=== PATIENT | male | born 1990 | race Hispanic/Latino ===

== ENCOUNTER 2019-08-02 05:58 | Day surgery (SDC) | payer BC ==
[2019-08-02] MEDS ORDERED: raNITIdine HCL INJ 25 MG/ML VIAL ONE (07:00)
[2019-08-02] MEDS ORDERED: PROPOFOL 200 MG/20 ML VIAL IV ONE (07:00)
[2019-08-02] MEDS ORDERED: DEXAMETHASONE INJ 10 MG/ML VIAL ONE (07:00)
[2019-08-02] MEDS ORDERED: LIDOCAINE 1% 10 ML VIAL INJ ONE (07:00)
[2019-08-02] MEDS ORDERED: SODIUM CHLORIDE 0.9% 50 ML VIAL ONE (07:00)
[2019-08-02] MEDS ORDERED: MAGNESIUM SULFATE INJ 1 GM/2 ML VIAL ONE (07:00)
[2019-08-02] MEDS ORDERED: KETOROLAC TROMETHAMINE INJ 30 MG/ML VIAL ONE (07:00)
[2019-08-02] MEDS ORDERED: SODIUM CHL 0.9% 100ML MINI-BAG 100 ML IVPB ONE (07:12)
[2019-08-02] MEDS ORDERED: ceFAZolin SODIUM 1 GM VIAL ONE (07:12)
[2019-08-02] MEDS ORDERED: LACTATED RINGERS 1,000 ML ONE (07:12)
[2019-08-02] MEDS ORDERED: BUPIVACAINE 0.25% W/EPI 50 ML VIAL INJ ONE (08:44)
[2019-08-02] MEDS ORDERED: HEPARIN SODIUM (PORCINE) 10,000 UNITS/ML VIAL ONE (08:44)
[2019-08-02] MEDS ORDERED: KETAMINE HCL 100 MG/ML VIAL ONE (11:52)
[2019-08-02] MEDS ORDERED: fentaNYL CITRATE INJ 50 MCG/ML AMP ONE ×2 (11:53→13:47)
[2019-08-02] MEDS ORDERED: ROCURONIUM BROMIDE 10 MG/ML VIAL ONE ×3 (11:53→13:47)
[2019-08-02] MEDS ORDERED: SUGAMMADEX SODIUM 200 MG/2 ML VIAL IV ONE (11:53)
[2019-08-02] MEDS ORDERED: MIDAZOLAM INJ 5 MG/5 ML VIAL ONE (11:53)
[2019-08-02] MEDS ORDERED: ELECTROLYTE-A 1,000 ML IVS ONE ×2 (12:40→15:15)
[2019-08-02] MEDS ORDERED: HYDROmorphone HCL INJ 2 MG/ML VIAL ONE (14:22)
[2019-08-02] MEDS ORDERED: LEVALBUTEROL NEBS 1.25 MG/3 ML VIAL NEB ONE (15:44)
--- NOTE | 2019-08-02 15:48 | OP ---
DATE OF PROCEDURE: 08/02/19 PREOPERATIVE DIAGNOSIS: 1. Symptomatic cholelithiasis. 2. Fatty infiltration of the liver. POSTOPERATIVE DIAGNOSIS: 1. Symptomatic cholelithiasis. 2. Fatty infiltration of the liver. 3. Acute and chronic cholecystitis. 4. Hepatic pathology pending. PROCEDURE: 1. Laparoscopic cholecystectomy with intraoperative cholangiography using fluoroscopy. 2. Wedge biopsy, right lobe of the liver. SURGEON: Nelson Nunes MD. BUCKET TURNER: None. ANESTHESIA: Local infiltration of 0.25% Marcaine with epinephrine and general endotracheal anesthesia. INDICATION: The patient is a 28-year-old male who presented to the Emergency Room this past weekend with right upper quadrant pain. He contacted me on Tuesday. I reviewed his lab and CT scan which revealed a normal white count, normal liver functions and a CT showing no signs of cholecystitis, but multiple gallstones. He was seen in the office. The risks, benefits and alternatives to the procedure were discussed and accepted. The patient was brought to the Surgical Suite today for cholecystectomy after the risks, benefits and alternatives to the procedure were discussed and accepted. FINDINGS: The gallbladder had dense, but recent adhesions, for the whole wall of the gallbladder and the neck. The gallbladder was distended and had dark green bile. Intraoperative cholangiography revealed a small cystic duct, common bile duct with free flow into the duodenum with no filling defects or strictures identified. DESCRIPTION OF PROCEDURE: After adequate general endotracheal anesthesia was obtained, the patient was prepped and draped in the usual sterile manner. Surgical time-out was taken. The supraumbilical area was infiltrated with local anesthesia. A vertical incision was made. Dissection was carried down through the skin and subcutaneous tissue to the midline fascia. This was done with some difficulty due to the depth of the subcutaneous fat. Traction sutures were placed on either side of the midline. A small incision was made in the midline. An Alex trocar was introduced under direct vision into the abdominal cavity and fixed in place with the 20 mL balloon. CO2 was then insufflated until a pressure of 12 mmHg was reached and the abdomen was tympanitic in all four quadrants. When this was done, the laparoscope was introduced. The abdomen was inspected with the previously noted findings. The upper abdominal ports were placed under direct vision in the usual manner. The adhesions to the gallbladder were then taken down quite easily on the body of the gallbladder with blunt dissection. They were more dense towards the neck and yuridia hepatis and these were taken down also with blunt dissection with little difficulty. The triangle of Calot was then explored. The cystic duct was identified. A small vein was identified, clipped and divided. The cystic duct was dissection free and a small incision was made in the cystic duct. The cholangiogram catheter was introduced through a separate stab wound in the right upper quadrant, introduced into the cystic duct and clipped in place. Cholangiograms were then taken using fluoroscopy which revealed free flow into the duodenum with no filling defects or strictures noted. When this was done, the cystic duct catheter was removed. The cystic duct was hemoclipped three times distally and divided. Also of note, a Storz needle was used to aspirate 120 cc from the gallbladder prior the beginning of the dissection of the triangle of Calot. When this was done, the artery was identified and clipped three times proximally and then divided. The gallbladder was then dissected free from the gallbladder bed of the liver with some difficulty using electrocautery. This was just due to the length of the gallbladder. When was done, hemostasis was noted to be adequate. The gallbladder was placed in an EndoCatch bag and removed from the supraumbilical port site which required some extension of the fascial defect and the skin incision. When this was done, the subhepatic space and yuridia hepatis were irrigated copiously with saline. Hemostasis was noted to be adequate. There was no bile leak was identified. At this point, the wedge biopsy of the right lobe of the liver was performed using sharp scissors. The specimen was removed and sent for pathological evaluation. Hemostasis was obtained with electrocautery turned up to 50 on coag. When this was done, the yuridia hepatis, the subhepatic space and subphrenic space were all irrigated copiously with saline. Eventually, the aspirate became just light pink, no active bleeding was identified. At this point, the upper abdominal ports were removed under direct vision and adequate hemostasis was noted. At this point, the CO2, the laparoscope and the supraumbilical port were removed. The supraumbilical port site fascia was approximated with a single [id number] suture of #1 PDS. When this was tightened and tied, the fascia was palpated and there was no defect identified. Subcutaneous tissue was irrigated with saline. The supraumbilical port site was approximated with interrupted 2-0 Vicryl sutures. Skin edges were approximated with a skin stapler. Sterile dressings were applied. The patient was awakened and taken to the Recovery Room in good and stable condition. Estimated blood loss was approximately 100 mL. All sponge, needle and instrument counts were correct. #[id number] MTDD
[2019-08-02 17:25] VITALS: BP 113/76; TEMP 97.3; O2SAT 91
--- NOTE | 2019-08-03 06:29 | RAD ---
EXAM: FL LESS THAN 1 HOUR DATE: 08/02/2019 Ordering provider: Nelson Nunes CLINICAL INDICATION: IOC COMPARISON: 07/28/2019 CT abdomen pelvis FINDINGS: 2 intraoperative fluoroscopic images were submitted for review. Images demonstrate opacification of the common bile duct. No filling defect or stricture identified. Please refer to operative report for details. Fluoroscopy time: 15 seconds IMPRESSION: Intraoperative fluoroscopy. Electronically signed by: Mak Escudero MD 08/03/2019 6:28 AM [facility]
== END 2019-08-02 17:25 | disposition home or self-care (01) ==
LOC: AMB 05:58
PROVIDERS: ATTEND Surgery
DX: K80.10 Calculus of gallbladder with chronic cholecystitis without obstruction (principal); K76.0 Fatty (change of) liver, not elsewhere classified; K66.0 Peritoneal adhesions (postprocedural) (postinfection); E66.9 Obesity, unspecified; J41.0 Simple chronic bronchitis; F17.200 Nicotine dependence, unspecified, uncomplicated
CPT/HCPCS: 00790; 47001; 47563; 76000; A4216; J0690; J1100; J1170; J1644; J1885; J2250; J2780; J3010; J3475; J3490; J7050; J7120; J7614